=== PATIENT | female | born 1995 | race Caucasian/White ===

== ENCOUNTER 2019-01-26 22:25 | Emergency (ER) | payer OTHER ==
[2019-01-26 22:49] VITALS: BP 131/82
== END 2019-01-27 00:14 | disposition home or self-care (01) ==
LOC: ER 22:26
DX: R07.89 Other chest pain (principal)
CPT/HCPCS: 71045; 93005; 99283

== ENCOUNTER 2019-04-06 23:34 | Emergency (ER) | payer MEDICAID ==
[~2019-04-06] VITALS: Ht 165.1 cm; Wt 81.0 kg
[2019-04-07 00:37] VITALS: BP 106/75
== END 2019-04-07 00:39 | disposition home or self-care (01) ==
LOC: ER 23:34
DX: O26.891 Other specified pregnancy related conditions, first trimester (principal); G44.209 Tension-type headache, unspecified, not intractable; M54.2 Cervicalgia; Z3A.10 10 weeks gestation of pregnancy
CPT/HCPCS: 99281